=== PATIENT | male | born 1940 | race Hispanic/Latino ===

== ENCOUNTER → 2018-09-27 | Outpatient (CLI) | payer OTHER | END | disposition home or self-care (01) | LOC: OIH 15:26 | PROVIDERS: ATTEND Internal Medicine | DX: I10 Essential (primary) hypertension (principal); M47.815 Spondylosis without myelopathy or radiculopathy, thoracolumbar region | CPT/HCPCS: 71046 ==

== ENCOUNTER → 2020-05-16 | Outpatient (CLI) | payer OTHER | END | disposition home or self-care (01) | LOC: RAH 11:32 | PROVIDERS: ATTEND Internal Medicine | DX: E03.4 Atrophy of thyroid (acquired) (principal); E03.9 Hypothyroidism, unspecified | CPT/HCPCS: 76536 ==